=== PATIENT | female | born 1985 | race Asian ===

== ENCOUNTER 2017-01-08 00:51 | Outpatient (CLI) | payer OTHER ==
[2017-01-08] VITALS (14 sets, daily range): BP systolic 129–146; BP diastolic 82–96; PULSE 74–104; TEMP 97.7
[~2017-01-08] VITALS: Ht 157.5 cm; Wt 67.7 kg
[2017-01-08] MEDS ORDERED: PRILOSEC 20MG20 MG PO (01:37)
[2017-01-08] MEDS ORDERED: PRENATAL MVI (01:38)
[2017-01-08] MEDS ORDERED: PROCARDIA XL 3030 MG PO ×2 (01:39→23:26)
[2017-01-08 01:46] LABS: BASO % 0.4 % (0.0-2.0); EOS # 0.1 (0.0-0.7); EOS % 0.8 % (0-4.0); GRAN # 5.5 (1.4-6.5); GRAN % 69.9 % (42.2-75.2); HEMOGLOBIN 12.4 g/dl (12.5-16.0); LYMPH # 1.8 (1.2-3.4); LYMPH % 22.9 % (20.0-51.0); MEAN CELL VOLUME 84 fl (80.0-100.0); MEAN CORPUSCULAR HEMOGLOBIN 29 pg (27.0-31.0); MEAN CORPUSCULAR HGB CONC 34 g/dl (33.0-37.0); MEAN PLATELET VOLUME 11.3 fl (7.4-10.4); MONO # 0.4 (0.1-0.6); MONO % 5.6 % (1.7-9.3); PLATELET COUNT 218 K/mm3 (130-400); RED BLOOD COUNT 4.28 M/mm3 (4.10-5.30); REDCELL DISTRIBUTION WIDTH-CV 12.9 % (11.5-14.5); WHITE BLOOD COUNT 7.9 K/mm3 (4.8-10.8)
[2017-01-08] MEDS ORDERED: TYLENOL 500MG500 MG PO (01:46)
[2017-01-08 01:47] LABS: HEMATOCRIT 36.1 % (37.0-47.0)
[2017-01-08 01:57] LABS: ALBUMIN 3.4 gm/dL (3.5-5.0); BILIRUBIN,TOTAL 0.6 mg/dL (0.0-1.0); CALCIUM 9.5 mg/dL (8.4-10.2); CREATININE, serum 0.6 mg/dL (0.52-1.25); TOTAL PROTEIN 6.9 gm/dL (6.4-8.2)
== END 2017-01-08 06:30 | disposition home or self-care (01) ==
LOC: LDRO 00:51
PROVIDERS: Obstetrics & Gynecology
DX: O99.89 Other specified diseases and conditions complicating pregnancy, childbirth and the puerperium (principal); R51 Headache; Z3A.39 39 weeks gestation of pregnancy
CPT/HCPCS: J2270

== ENCOUNTER 2017-01-08 20:46 | Outpatient (CLI) | payer OTHER ==
[~2017-01-08] VITALS: Ht 157.5 cm; Wt 67.7 kg
[~2017-01-08 20:46] MED LIST: PRENATAL MVI; PRILOSEC 20MG20 MG PO; PROCARDIA XL 3030 MG PO; TYLENOL 500MG500 MG PO
[2017-01-08 21:20] VITALS: BP 137/93; PULSE 89; TEMP 98.3
[2017-01-08 21:30] VITALS: BP 137/93; PULSE 89; TEMP 98.3
[2017-01-08 22:00] VITALS: BP 123/78; PULSE 92
[2017-01-08 22:30] VITALS: BP 124/79; PULSE 99
[2017-01-08 23:00] VITALS: BP 131/84; PULSE 95
[2017-01-08] MEDS ORDERED: PROCARDIA XL 3030 MG PO (23:26)
[2017-01-08 23:30] VITALS: BP 132/77; PULSE 96
== END 2017-01-08 23:50 | disposition home or self-care (01) ==
LOC: LDRO 20:46
DX: O26.893 Other specified pregnancy related conditions, third trimester (principal); R51 Headache; Z3A.39 39 weeks gestation of pregnancy

== ENCOUNTER 2017-01-10 08:23 | Inpatient (IN) | payer OTHER ==
[2017-01-10] VITALS (7 sets, daily range): BP systolic 135–158; BP diastolic 87–107; PULSE 80–92; TEMP 98.2–98.7
[~2017-01-10] VITALS: Ht 157.5 cm; Wt 66.4 kg
[2017-01-10 19:50] LABS: BASO % 0.3 % (0.0-2.0); EOS % 0.4 % (0-4.0); GRAN # 4.6 (1.4-6.5); GRAN % 67.4 % (42.2-75.2); HEMOGLOBIN 12.4 g/dl (12.5-16.0); LYMPH # 1.7 (1.2-3.4); LYMPH % 24.7 % (20.0-51.0); MEAN CELL VOLUME 83 fl (80.0-100.0); MEAN CORPUSCULAR HEMOGLOBIN 29 pg (27.0-31.0); MEAN CORPUSCULAR HGB CONC 35 g/dl (33.0-37.0); MONO # 0.5 (0.1-0.6); MONO % 6.8 % (1.7-9.3); PLATELET COUNT 238 K/mm3 (130-400); REDCELL DISTRIBUTION WIDTH-CV 12.9 % (11.5-14.5); WHITE BLOOD COUNT 6.8 K/mm3 (4.8-10.8)
[2017-01-10 19:52] LABS: HEMATOCRIT 35.8 % (37.0-47.0)
[2017-01-11] VITALS (64 sets, daily range): BP systolic 111–164; BP diastolic 73–112; PULSE 78–123; TEMP 97.4–98.8
[2017-01-12] VITALS (10 sets, daily range): BP systolic 133–162; BP diastolic 86–99; PULSE 84–108; TEMP 97.8–98.2
[2017-01-12 08:04] LABS: BASO % 0.3 % (0.0-2.0); EOS % 0.2 % (0-4.0); GRAN # 8.8 (1.4-6.5); GRAN % 75.7 % (42.2-75.2); HEMATOCRIT 34.2 % (37.0-47.0); LYMPH # 2.1 (1.2-3.4); LYMPH % 18.3 % (20.0-51.0); MEAN CELL VOLUME 84 fl (80.0-100.0); MEAN CORPUSCULAR HEMOGLOBIN 29 pg (27.0-31.0); MEAN CORPUSCULAR HGB CONC 35 g/dl (33.0-37.0); MEAN PLATELET VOLUME 11.4 fl (7.4-10.4); MONO # 0.6 (0.1-0.6); MONO % 5.2 % (1.7-9.3); PLATELET COUNT 238 K/mm3 (130-400); RED BLOOD COUNT 4.09 M/mm3 (4.10-5.30); REDCELL DISTRIBUTION WIDTH-CV 12.8 % (11.5-14.5); WHITE BLOOD COUNT 11.6 K/mm3 (4.8-10.8)
[2017-01-13 05:37] VITALS: BP 129/85; PULSE 114
[2017-01-13 07:00] VITALS: BP 125/92; PULSE 98; TEMP 97.8
[2017-01-13] MEDS ORDERED: PROCARDIA XL90 MG PO (09:54)
[2017-01-13] MEDS ORDERED: MOTRIN 600600 MG/TAB PO (09:54)
[2017-01-13] MEDS ORDERED: PERCOCET 325 MG1 TA2 PO (09:54)
[2017-01-13 16:05] VITALS: BP 130/92; PULSE 107; TEMP 97.8
[2017-01-13 17:32] VITALS: BP 131/78; PULSE 103
[2017-01-13 20:10] VITALS: BP 124/86; PULSE 111; TEMP 98
[2017-01-14 05:47] VITALS: BP 132/92; PULSE 90
[2017-01-14 08:00] VITALS: BP 129/83; PULSE 101; TEMP 97.5
== END 2017-01-14 13:42 | disposition home or self-care (01) | DRG 766 ==
LOC: OB 08:23 → LDR 18:45 → OB 01-11 08:22
PROVIDERS: Obstetrics & Gynecology
PROC: 10D00Z1 Extraction of Products of Conception, Low, Open Approach (ICD-10-PCS; principal; 2017-01-11)
PROC: 3E033VJ Introduction of Other Hormone into Peripheral Vein, Percutaneous Approach (ICD-10-PCS; 2017-01-11)
DX: O10.92 Unspecified pre-existing hypertension complicating childbirth (principal); O64.0XX0 Obstructed labor due to incomplete rotation of fetal head, not applicable or unspecified; O75.89 Other specified complications of labor and delivery; Z3A.39 39 weeks gestation of pregnancy; Z37.0 Single live birth
CPT/HCPCS: J0690; J1885; J2270; J2370; J2405; J2590; J7120

== ENCOUNTER 2019-04-12 16:03 | Emergency (ER) | payer OTHER ==
[~2019-04-12] VITALS: Ht 157.5 cm; Wt 50.9 kg
[~2019-04-12 16:03] MED LIST changes: +MOTRIN 600600 MG/TAB PO; +PERCOCET 325 MG1 TA2 PO; +PROCARDIA XL90 MG PO
[2019-04-12 16:12] VITALS: TEMP 98.2
[2019-04-12 17:18] LABS: BASO % 0.4 % (0.0-2.0); EOS # 0.1 (0.0-0.7); EOS % 1.1 % (0-4.0); GRAN # 6.4 (1.4-6.5); HEMATOCRIT 37.2 % (37.0-47.0); HEMOGLOBIN 13.2 g/dl (12.5-16.0); LYMPH # 2.3 (1.2-3.4); LYMPH % 25.1 % (20.0-51.0); MEAN CELL VOLUME 84 fl (80.0-100.0); MEAN CORPUSCULAR HEMOGLOBIN 30 pg (27.0-31.0); MEAN CORPUSCULAR HGB CONC 36 g/dl (33.0-37.0); MEAN PLATELET VOLUME 9.7 fl (7.4-10.4); MONO # 0.4 (0.1-0.6); MONO % 4.2 % (1.7-9.3); PLATELET COUNT 304 K/mm3 (130-400); RED BLOOD COUNT 4.43 M/mm3 (4.10-5.30); REDCELL DISTRIBUTION WIDTH-CV 12.1 % (11.5-14.5)
[2019-04-12 17:25] LABS: ALBUMIN 4.6 gm/dL (3.5-5.0); BILIRUBIN,TOTAL 0.7 mg/dL (0.0-1.0); CALCIUM 9.5 mg/dL (8.4-10.2); CREATININE, serum 0.56 (0.52-1.25); POTASSIUM 3.8 mmol/L (3.4-5.0); TOTAL PROTEIN 8.1 gm/dL (6.4-8.2)
[2019-04-12 17:41] LABS: PH 7 (5-8); SQUAMOUS EPITHELIAL 0-2 /hpf; URINE APPEARANCE Clear; URINE BACTERIA Rare /hpf; URINE BILIRUBIN Negative (NEGATIVE); URINE BLOOD 3+ (NEGATIVE); URINE COLOR Yellow; URINE GLUCOSE Negative (NEGATIVE); URINE KETONE Negative (NEGATIVE); URINE LEUKOCYTE ESTERASE Trace (NEGATIVE); URINE NITRATE Negative (NEGATIVE); URINE PROTEIN(semi-quant) 1+ (NEGATIVE); URINE UROBILINOGEN Negative (NEGATIVE)
[2019-04-12 19:55] VITALS: BP 124/96; PULSE 92
[2019-04-12 20:12] LABS: COLLECTION METHOD CATHETER
== END 2019-04-12 19:55 | disposition home or self-care (01) ==
LOC: COL.ER 16:03
PROVIDERS: Emergency Medicine
DX: O03.9 Complete or unspecified spontaneous abortion without complication (principal); I10 Essential (primary) hypertension; Z98.890 Other specified postprocedural states

== ENCOUNTER 2020-02-27 13:31 | Outpatient (CLI) | payer OTHER ==
[~2020-02-27] VITALS: Ht 157.5 cm; Wt 60.9 kg
[2020-02-27] VITALS (9 sets, daily range): BP systolic 138–167; BP diastolic 92–118; PULSE 74–85; TEMP 98.5
--- NOTE | 2020-02-27 11:50 | NUR ---
Presents to labor and delivery. Sent over from office with elevated blood pressures. Assessment done, questions offered and answered.
--- NOTE | 2020-02-27 12:15 | NUR ---
Rests in bed, alert. Lab here for blood draw. Urine sent with lab analyst.
[2020-02-27 12:26] LABS: COLLECTION METHOD CATHETER
--- NOTE | 2020-02-27 12:30 | NUR ---
Rests in bed, alert. 1233 Betamethasone given to right glueteal.
[2020-02-27 12:33] LABS: BASO % 0.4 % (0.0-2.0); EOS % 0.4 % (0-4.0); GRAN # 5.2 (1.4-6.5); GRAN % 71.2 % (42.2-75.2); HEMOGLOBIN 12.1 g/dl (12.5-16.0); LYMPH # 1.6 (1.2-3.4); LYMPH % 22.3 % (20.0-51.0); MEAN CELL VOLUME 86 fl (80.0-100.0); MEAN CORPUSCULAR HEMOGLOBIN 31 pg (27.0-31.0); MEAN CORPUSCULAR HGB CONC 36 g/dl (33.0-37.0); MEAN PLATELET VOLUME 11.2 fl (7.4-10.4); MONO # 0.4 (0.1-0.6); MONO % 5.2 % (1.7-9.3); PLATELET COUNT 207 K/mm3 (130-400); RED BLOOD COUNT 3.93 M/mm3 (4.10-5.30); REDCELL DISTRIBUTION WIDTH-CV 11.9 % (11.5-14.5)
[2020-02-27 12:37] LABS: HEMATOCRIT 33.8 % (37.0-47.0)
[2020-02-27 12:43] LABS: ALBUMIN 3.7 gm/dL (3.5-5.0); BILIRUBIN,TOTAL 0.5 mg/dL (0.0-1.0); CREATININE, serum 0.66 (0.52-1.25); POTASSIUM 3.8 mmol/L (3.4-5.0)
--- NOTE | 2020-02-27 13:00 | NUR ---
Procardia 60 mg. given as ordered.
[~2020-02-27 13:31] MED LIST changes: +OSCAL 500 TAB500 MG PO; +PRENATAL TABLET PO
[2020-02-27 13:39] LABS: PH 7 (5-8); SQUAMOUS EPITHELIAL 0-2 /hpf; URINE APPEARANCE Clear; URINE BACTERIA Moderate /hpf; URINE BILIRUBIN Negative (NEGATIVE); URINE BLOOD Negative (NEGATIVE); URINE COLOR Straw; URINE GLUCOSE Negative (NEGATIVE); URINE KETONE Negative (NEGATIVE); URINE LEUKOCYTE ESTERASE Negative (NEGATIVE); URINE NITRATE Negative (NEGATIVE); URINE PROTEIN(semi-quant) Negative (NEGATIVE); URINE RBC 0-2 /hpf; URINE UROBILINOGEN Negative (NEGATIVE)
--- NOTE | 2020-02-27 14:00 | NUR ---
1420 Discharge orders given, verbalizes understanding. Dismissed to home, alert, ambulatory, stable.
== END 2020-02-27 14:20 | disposition home or self-care (01) ==
LOC: LDRO 13:31
PROVIDERS: Obstetrics & Gynecology
DX: O13.3 Gestational [pregnancy-induced] hypertension without significant proteinuria, third trimester (principal); Z3A.35 35 weeks gestation of pregnancy
CPT/HCPCS: J0702

== ENCOUNTER 2020-03-11 06:18 | Inpatient (IN) | payer OTHER ==
[2020-03-11] VITALS (19 sets, daily range): BP systolic 95–159; BP diastolic 59–101; PULSE 78–112; TEMP 97.4–99.8
[~2020-03-11] VITALS: Ht 157.5 cm; Wt 60.0 kg
[2020-03-11] MEDS ORDERED: MOTRIN 800800 MG/TAB PO (09:35)
[2020-03-11] MEDS ORDERED: PERCOCET 325 MG1 TA2 PO (09:35)
[2020-03-11 10:03] LABS: BASO % 0.3 % (0.0-2.0); EOS % 0.3 % (0-4.0); GRAN # 6.2 (1.4-6.5); GRAN % 68.3 % (42.2-75.2); HEMOGLOBIN 12.8 g/dl (12.5-16.0); LYMPH # 2.4 (1.2-3.4); LYMPH % 26.5 % (20.0-51.0); MEAN CELL VOLUME 86 fl (80.0-100.0); MEAN CORPUSCULAR HEMOGLOBIN 31 pg (27.0-31.0); MEAN CORPUSCULAR HGB CONC 36 g/dl (33.0-37.0); MEAN PLATELET VOLUME 10.9 fl (7.4-10.4); MONO # 0.4 (0.1-0.6); MONO % 4.2 % (1.7-9.3); PLATELET COUNT 225 K/mm3 (130-400); REDCELL DISTRIBUTION WIDTH-CV 11.9 % (11.5-14.5)
[2020-03-11 10:22] LABS: HEMATOCRIT 35.4 % (37.0-47.0)
[2020-03-11 10:44] LABS: BILIRUBIN,TOTAL 0.5 mg/dL (0.0-1.0); CALCIUM 9.7 mg/dL (8.4-10.2); CREATININE, serum 0.68 (0.52-1.25); POTASSIUM 4.1 mmol/L (3.4-5.0); TOTAL PROTEIN 7.4 gm/dL (6.4-8.2)
[2020-03-11 12:11] LABS: COLLECTION METHOD CATHETER
[2020-03-11 12:21] LABS: PH 7 (5-8); SQUAMOUS EPITHELIAL None Seen /hpf; URINE APPEARANCE Clear; URINE BACTERIA None Seen /hpf; URINE BILIRUBIN Negative (NEGATIVE); URINE BLOOD 1+ (NEGATIVE); URINE COLOR Straw; URINE GLUCOSE Negative (NEGATIVE); URINE KETONE Negative (NEGATIVE); URINE LEUKOCYTE ESTERASE Negative (NEGATIVE); URINE NITRATE Negative (NEGATIVE); URINE PROTEIN(semi-quant) 1+ (NEGATIVE); URINE RBC 0-2 /hpf; URINE UROBILINOGEN Negative (NEGATIVE); URINE WBC 0-2 /hpf
--- NOTE | 2020-03-11 12:42 | NUR ---
0945 PATIENT HERE FOR SCHEDULED REPEAT C SECTION. ASSESSMENT COMPLETED. IV STARTED IN LEFT WRIST. LR BROOKE. ALL CONSENTS SIGNED FOR OR. EFM ON NO CONTRACTIONS. FHT 145 BABY VERY ACTIVE
[2020-03-12] VITALS (11 sets, daily range): BP systolic 127–153; BP diastolic 88–106; PULSE 101–117; TEMP 97.9–98.7
--- NOTE | 2020-03-12 09:30 | NUR ---
Patient reports feeling dizzy and tired. Denies headache, visual disturbances, or any other symptoms. Encouraged to rest. Will continue to monitor.
--- NOTE | 2020-03-12 09:35 | NUR ---
Initial visit attempt; Patient not in room, Residential [facility] Specialist left card of congratulations for the of her son and information regarding the availability of spiritual care at [facility].
[2020-03-12 10:03] LABS: BASO % 0.2 % (0.0-2.0); EOS % 0.1 % (0-4.0); GRAN # 12.8 (1.4-6.5); GRAN % 78.2 % (42.2-75.2); HEMOGLOBIN 11.2 g/dl (12.5-16.0); LYMPH # 2.6 (1.2-3.4); MEAN CELL VOLUME 85 fl (80.0-100.0); MEAN CORPUSCULAR HEMOGLOBIN 30 pg (27.0-31.0); MEAN CORPUSCULAR HGB CONC 36 g/dl (33.0-37.0); MEAN PLATELET VOLUME 10.5 fl (7.4-10.4); MONO # 0.8 (0.1-0.6); MONO % 4.9 % (1.7-9.3); PLATELET COUNT 205 K/mm3 (130-400); RED BLOOD COUNT 3.68 M/mm3 (4.10-5.30); REDCELL DISTRIBUTION WIDTH-CV 11.7 % (11.5-14.5)
[2020-03-12 10:13] LABS: ALBUMIN 3.6 gm/dL (3.5-5.0); BILIRUBIN,TOTAL 0.5 mg/dL (0.0-1.0); CALCIUM 9.1 mg/dL (8.4-10.2); CREATININE, serum 0.67 (0.52-1.25); HEMATOCRIT 31.4 % (37.0-47.0); POTASSIUM 3.1 mmol/L (3.4-5.0); TOTAL PROTEIN 6.9 gm/dL (6.4-8.2)
[2020-03-13] MEDS ORDERED: PROCARDIA XL 6060 MG PO (06:35)
[2020-03-13 09:01] VITALS: BP 137/93; PULSE 103; TEMP 97.9
[2020-03-13 10:05] VITALS: BP 142/89
[2020-03-13 15:00] VITALS: BP 143/90; BP 145/90; PULSE 100
== END 2020-03-13 16:49 | disposition home or self-care (01) | DRG 788 ==
LOC: OB 09:26
PROVIDERS: ADMIT Obstetrics & Gynecology
PROC: 10D00Z1 Extraction of Products of Conception, Low, Open Approach (ICD-10-PCS; principal; 2020-03-11)
DX: O34.211 Maternal care for low transverse scar from previous cesarean delivery (principal); O13.4 Gestational [pregnancy-induced] hypertension without significant proteinuria, complicating childbirth; Z3A.37 37 weeks gestation of pregnancy; Z37.0 Single live birth; O36.5930 Maternal care for other known or suspected poor fetal growth, third trimester, not applicable or unspecified; O99.02 Anemia complicating childbirth; D64.9 Anemia, unspecified
CPT/HCPCS: J0360; J0690; J1100; J1885; J2370; J2405; J2590; J3010; J7120

== ENCOUNTER → 2020-09-09 | Outpatient (CLI) | payer OTHER ==
[~2020-09-09] MED LIST changes: +MOTRIN 800800 MG/TAB PO; +PROCARDIA XL 6060 MG PO
[2020-09-09 16:19] LABS: ALBUMIN 4.7 gm/dL (3.5-5.0); BILIRUBIN,TOTAL 0.2 mg/dL (0.0-1.0); CALCIUM 9.8 mg/dL (8.4-10.2); CREATININE, serum 0.66 (0.52-1.25); POTASSIUM 4.2 mmol/L (3.4-5.0); TOTAL PROTEIN 8.4 gm/dL (6.4-8.2)
[2020-09-09 16:26] LABS: HEMATOCRIT 40.8 % (37.0-47.0); HEMOGLOBIN 13.3 g/dl (12.5-16.0); MEAN CELL VOLUME 82 fl (80.0-100.0); MEAN CORPUSCULAR HEMOGLOBIN 27 pg (27.0-31.0); MEAN CORPUSCULAR HGB CONC 33 g/dl (33.0-37.0); MEAN PLATELET VOLUME 10.5 fl (7.4-10.4); PLATELET COUNT 483 K/mm3 (130-400); RED BLOOD COUNT 4.97 M/mm3 (4.10-5.30); REDCELL DISTRIBUTION WIDTH-CV 12.2 % (11.5-14.5)
== END ==
LOC: COL.LAB 15:01
PROVIDERS: Physician Assistant
DX: R10.9 Unspecified abdominal pain (principal)